=== PATIENT | male | born 1965 | race Two or more races ===

== ENCOUNTER 2018-02-10 08:45 | Outpatient (CLI) | payer OTHER ==
[~2018-02-10 08:45] MED LIST: ATENOLOL50 MG; KETO10TA2 PO
== END 2018-02-10 09:53 | disposition home or self-care (01) ==
LOC: RAD 08:45
DX: R10.84 Generalized abdominal pain (principal)

== ENCOUNTER → 2018-11-03 | Outpatient (CLI) | payer OTHER | END | disposition home or self-care (01) | LOC: LAB 13:12 | DX: K22.0 Achalasia of cardia (principal) ==

== ENCOUNTER → 2018-11-04 | Outpatient (CLI) | payer OTHER | END | disposition home or self-care (01) | LOC: MRI 11:10 | DX: K22.0 Achalasia of cardia (principal); J39.2 Other diseases of pharynx | CPT/HCPCS: 70552 ==